=== PATIENT | male | born 1965 | race Caucasian/White ===

== ENCOUNTER 2016-12-11 17:28 | Inpatient (IN) | payer OTHER ==
[~2016-12-11] VITALS: Ht 170.2 cm; Wt 88.1 kg
[~2016-12-11 17:28] MED LIST: ALPRAZOLAM0.5 MG PO; ASPIR 8181 MG PO; CATAPRES 0.1MG0.1 MG PO; COMBIVENT0.074 GM/I INH; FLONASE 0.05% N16 GM; FOLIC ACID1 MG PO; GABAPENTIN800 MG PO; HABITROL 21 MG P1 EA TD; LORTAB 5-325 M1 EACH PO; MILK OF MAGNESI30 ML PO; MIRALAX PACK 171 PKT PO; MULTIVITAMINS1 EAC1 PO; NORCO 5-325 TA1 EACH PO; PANCREASE PO; PREDNISONE20 MG PO; PRILOSEC20 MG PO; SENOKOT-S TABL1 EACH PO; SEROQUEL200 MG PO; TOPROL XL 100100 MG PO; VENTOLIN/PROVE0.5 ML INH; ZANAFLEX4 M1 PO; ZOFRAN4 MG PO
[2016-12-11 19:34] LABS: HEMOGLOBIN 13.5 gm/dl (14.0-17.5); RED BLOOD COUNT 4.42 M/UL (4.20-5.50); WHITE BLOOD COUNT 13.3 K/UL (4.5-11.0)
--- NOTE | 2016-12-12 03:40 | NUR ---
ASKED KARLA NIGHT PHARMACIST TO PLEASE RELEASE CLONIDINE SO I CAN ADMINISTER IT ORDERED
--- NOTE | 2016-12-12 04:29 | NUR ---
JUST NOTIFIED PATIENT CAN GO TO ROOM 4782
[2016-12-12 06:00] LABS: HEMOGLOBIN 11.9 gm/dl (14.0-17.5)
[2016-12-12 06:03] LABS: WHITE BLOOD COUNT 9.4 K/UL (4.5-11.0)
[2016-12-12 06:21] LABS: BUN/CREATININE RATIO 10 (0-10)
[2016-12-13 03:43] LABS: HEMOGLOBIN 11.2 gm/dl (14.0-17.5); RED BLOOD COUNT 3.71 M/UL (4.20-5.50); WHITE BLOOD COUNT 7.7 K/UL (4.5-11.0)
[2017-05-19] MEDS ORDERED: CREON DR 3,0001 EACH PO (17:39)
[2017-05-19] MEDS ORDERED: FOLIC ACID 1 MG1 MG PO (17:40)
[2017-05-19] MEDS ORDERED: CLARITIN 10MG T10 MG PO (17:41)
[2017-05-19] MEDS ORDERED: TIZANIDINE HCL4 M1 PO (17:42)
[2017-05-19] MEDS ORDERED: OMEPRAZOLE20 MG PO (17:44)
[2017-05-21] MEDS ORDERED: PROTONIX40 MG PO (14:04)
[2017-05-21] MEDS ORDERED: MAGNESIUM400 MG PO (14:05)
[2017-05-21] MEDS ORDERED: DAILY MULTIPLE1 EAC1 PO (14:09)
== END 2016-12-13 15:51 | disposition left against medical advice (07) | DRG 683 ==
LOC: ER1 17:28 → ZEROF 23:55 → CCU 23:55 → MED SURG 4 12-12 03:16 → CCU 12-12 03:16 → M/S 12-13 06:00
PROVIDERS: Family Medicine; Physician Assistant; ADMIT Internal Medicine
DX: N17.9 Acute kidney failure, unspecified (principal); E87.2 Acidosis; K86.1 Other chronic pancreatitis; E87.1 Hypo-osmolality and hyponatremia; I16.9 Hypertensive crisis, unspecified; I95.1 Orthostatic hypotension; E86.0 Dehydration; J44.9 Chronic obstructive pulmonary disease, unspecified; I10 Essential (primary) hypertension; K59.09 Other constipation; K21.9 Gastro-esophageal reflux disease without esophagitis; E83.52 Hypercalcemia; G89.4 Chronic pain syndrome; D72.829 Elevated white blood cell count, unspecified; F10.20 Alcohol dependence, uncomplicated; F17.210 Nicotine dependence, cigarettes, uncomplicated; R74.8 Abnormal levels of other serum enzymes; S00.81XA Abrasion of other part of head, initial encounter; W19.XXXA Unspecified fall, initial encounter; Z79.82 Long term (current) use of aspirin; Z99.81 Dependence on supplemental oxygen; Z79.891 Long term (current) use of opiate analgesic; Z79.899 Other long term (current) drug therapy; Z98.890 Other specified postprocedural states; Z82.3 Family history of stroke; Z80.8 Family history of malignant neoplasm of other organs or systems
CPT/HCPCS: 36415; 70450; 71010; 72125; 72128; 72131; 80053; 80307; 81001; 82550; 82553; 83690; 83735; 83874; 84439; 84443; 84484; 85025; 85027; 87040; 87086; 93005; 94640; 94664; 95819; 99285; G0480; J3411; J3475; J7030

== ENCOUNTER 2016-12-15 22:24 | Emergency (ER) | payer OTHER ==
[2017-05-19] MEDS ORDERED: CREON DR 3,0001 EACH PO (17:39)
[2017-05-19] MEDS ORDERED: FOLIC ACID 1 MG1 MG PO (17:40)
[2017-05-19] MEDS ORDERED: CLARITIN 10MG T10 MG PO (17:41)
[2017-05-19] MEDS ORDERED: TIZANIDINE HCL4 M1 PO (17:42)
[2017-05-19] MEDS ORDERED: OMEPRAZOLE20 MG PO (17:44)
[2017-05-21] MEDS ORDERED: PROTONIX40 MG PO (14:04)
[2017-05-21] MEDS ORDERED: MAGNESIUM400 MG PO (14:05)
[2017-05-21] MEDS ORDERED: DAILY MULTIPLE1 EAC1 PO (14:09)
== END 2016-12-15 23:48 | disposition left against medical advice (07) ==
LOC: ER1 22:24
DX: Z53.21 Procedure and treatment not carried out due to patient leaving prior to being seen by health care provider (principal)
CPT/HCPCS: 93005

== ENCOUNTER 2016-12-25 00:40 | Observation (INO) | payer OTHER ==
[~2016-12-25] VITALS: Ht 165.1 cm; Wt 93.4 kg
[2016-12-25 05:12] LABS: HEMOGLOBIN 13.3 gm/dl (14.0-17.5); RED BLOOD COUNT 4.31 M/UL (4.20-5.50); WHITE BLOOD COUNT 9.6 K/UL (4.5-11.0)
[2016-12-25 06:10] LABS: BUN/CREATININE RATIO 8 (0-10)
[2016-12-25 08:28] LABS: BUN/CREATININE RATIO 8 (0-10)
[2016-12-25] MEDS ORDERED: CYMBALTA60 MG PO (09:26)
[2016-12-25] MEDS ORDERED: PHENERGAN 25 MG25 M1 PO (09:27)
[2016-12-25] MEDS ORDERED: BENADRYL 25MG C25 MG PO (09:29)
[2016-12-25] MEDS ORDERED: CLARITIN 10MG T10 MG PO (09:30)
[2016-12-25] MEDS ORDERED: MOBIC7.5 MG PO (09:31)
[2016-12-25] MEDS ORDERED: MULTIVITAMINS1 EAC1 PO (09:31)
[2016-12-25 16:40] LABS: BUN/CREATININE RATIO 8 (0-10)
[2016-12-26 05:46] LABS: RED BLOOD COUNT 3.65 M/UL (4.20-5.50); WHITE BLOOD COUNT 6.3 K/UL (4.5-11.0)
[2016-12-26 06:08] LABS: BUN/CREATININE RATIO 7 (0-10)
[2016-12-26 19:07] LABS: BUN/CREATININE RATIO 8 (0-10)
[2016-12-27 05:45] LABS: BUN/CREATININE RATIO 8 (0-10)
[2016-12-27] MEDS ORDERED: VITAMIN B-1100 M1 PO (12:36)
[2016-12-27] MEDS ORDERED: TYLENOL 325MG325 MG PO (12:37)
[2017-05-19] MEDS ORDERED: CREON DR 3,0001 EACH PO (17:39)
[2017-05-19] MEDS ORDERED: FOLIC ACID 1 MG1 MG PO (17:40)
[2017-05-19] MEDS ORDERED: CLARITIN 10MG T10 MG PO (17:41)
[2017-05-19] MEDS ORDERED: TIZANIDINE HCL4 M1 PO (17:42)
[2017-05-19] MEDS ORDERED: OMEPRAZOLE20 MG PO (17:44)
[2017-05-21] MEDS ORDERED: PROTONIX40 MG PO (14:04)
[2017-05-21] MEDS ORDERED: MAGNESIUM400 MG PO (14:05)
[2017-05-21] MEDS ORDERED: DAILY MULTIPLE1 EAC1 PO (14:09)
== END 2016-12-27 16:45 | disposition home or self-care (01) ==
LOC: ER1 00:40 → ZEROF 07:20 → PROG CARE 07:20 → M/S 07:20 → PROG CARE 17:21 → M/S 12-26 17:10
PROVIDERS: Emergency Medicine; Internal Medicine; ADMIT Internal Medicine
DX: K85.20 Alcohol induced acute pancreatitis without necrosis or infection (principal); K86.0 Alcohol-induced chronic pancreatitis; G89.29 Other chronic pain; R10.9 Unspecified abdominal pain; E87.5 Hyperkalemia; E87.2 Acidosis; I16.0 Hypertensive urgency; F10.129 Alcohol abuse with intoxication, unspecified; F17.210 Nicotine dependence, cigarettes, uncomplicated; F41.9 Anxiety disorder, unspecified; K21.9 Gastro-esophageal reflux disease without esophagitis; Z88.5 Allergy status to narcotic agent; Z79.82 Long term (current) use of aspirin; Z79.899 Other long term (current) drug therapy; Z91.19 Patient's noncompliance with other medical treatment and regimen; Z98.890 Other specified postprocedural states
CPT/HCPCS: 36415; 71010; 80048; 80053; 80307; 81001; 82150; 83690; 83735; 84100; 84484; 85025; 87086; 93005; 94640; 94664; 96361; 96374; 96375; 96376; 99285; G0378; G0480; J2270; J2405; J2550; J7030; J7050; Q0163

== ENCOUNTER 2017-01-02 13:54 | Emergency (ER) | payer OTHER ==
[~2017-01-02 13:54] MED LIST changes: +BENADRYL 25MG C25 MG PO; +CLARITIN 10MG T10 MG PO; +CYMBALTA60 MG PO; +MOBIC7.5 MG PO; +PHENERGAN 25 MG25 M1 PO; +TYLENOL 325MG325 MG PO; +VITAMIN B-1100 M1 PO
[2017-01-02 15:32] LABS: RED BLOOD COUNT 4.2 M/UL (4.20-5.50); WHITE BLOOD COUNT 7.2 K/UL (4.5-11.0)
[2017-01-02 15:55] LABS: BUN/CREATININE RATIO 10 (0-10)
[2017-01-02 21:20] LABS: BUN/CREATININE RATIO 8 (0-10)
[2017-05-19] MEDS ORDERED: CREON DR 3,0001 EACH PO (17:39)
[2017-05-19] MEDS ORDERED: FOLIC ACID 1 MG1 MG PO (17:40)
[2017-05-19] MEDS ORDERED: CLARITIN 10MG T10 MG PO (17:41)
[2017-05-19] MEDS ORDERED: TIZANIDINE HCL4 M1 PO (17:42)
[2017-05-19] MEDS ORDERED: OMEPRAZOLE20 MG PO (17:44)
[2017-05-21] MEDS ORDERED: PROTONIX40 MG PO (14:04)
[2017-05-21] MEDS ORDERED: MAGNESIUM400 MG PO (14:05)
[2017-05-21] MEDS ORDERED: DAILY MULTIPLE1 EAC1 PO (14:09)
== END 2017-01-02 22:05 | disposition home or self-care (01) ==
LOC: ER1 13:54
PROVIDERS: Emergency Medicine
DX: R55 Syncope and collapse (principal); R10.84 Generalized abdominal pain; R11.2 Nausea with vomiting, unspecified; R79.89 Other specified abnormal findings of blood chemistry; R42 Dizziness and giddiness; I10 Essential (primary) hypertension; J44.9 Chronic obstructive pulmonary disease, unspecified; F17.200 Nicotine dependence, unspecified, uncomplicated; Z90.49 Acquired absence of other specified parts of digestive tract; Z99.81 Dependence on supplemental oxygen
CPT/HCPCS: 36415; 70450; 71010; 80048; 80053; 81001; 82150; 82550; 82553; 83690; 83874; 84484; 85025; 93005; 96374; 96375; 96376; 99285; C9113; J2270; J2405; J7030

== ENCOUNTER 2017-01-15 17:52 | Inpatient (IN) | payer OTHER ==
[~2017-01-15] VITALS: Ht 167.6 cm; Wt 89.4 kg
[2017-01-15 21:23] LABS: HEMOGLOBIN 14.4 gm/dl (14.0-17.5); RED BLOOD COUNT 4.74 M/UL (4.20-5.50); WHITE BLOOD COUNT 7.9 K/UL (4.5-11.0)
[2017-01-15 21:43] LABS: BUN/CREATININE RATIO 9 (0-10)
[2017-01-16 09:05] LABS: BUN/CREATININE RATIO 9 (0-10)
--- NOTE | 2017-01-17 22:48 | NUR ---
01-17-17 DURING CHANGE OF SHIFT REPORT I WAS NOTIFIED THAT THE PATIENT HAD ACCIDENTALLY D/C'D HIS IV AND THE DAY SHIFT NURSE WAS UNABLE TO GET ONE. DURING MY ASSESSMENT AROUND 7PM I WENT TO TRY TO START THE PATIENT AN IV AND TRIED TWICE AND WAS UNSUCCESSFUL. TWO MORE NURSES ON THE FLOOR ATTEMPTED TO START AN IV AND WERE ALSO UNSUCCESSFUL. AT THIS POINT I CALLED ER TO SEE IF AN ER NURSE COULD COME UP AND START AN IV AND THEY SAID IT WOULD BE A LITTLE WHILE BEFORE THEY COULD COME UP. APPROX ONE HOUR WENT BY AND NOBODY HAD SHOWED UP YET SO I CALLED OUR EGG CASER AND ASKED IF SHE COULD FIND SOMEBODY FOR ME TO GET THE IV. SHE STATED THAT EVERYONE WAS BUSY WELL AND THAT IT WOULD BE A WHILE BEFORE SOMEBODY COULD GET TO ME, BUT THAT SHE WOULD TRY TO FIND SOMEONE. 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 [facility] NURSES INCLUDING MYSELF TRIED TO CALM THE PT DOWN AND EXPLAIN THE RISKS OF LEAVING, NOTHING HELPED. PT STATED MULTIPLE TIMES HE WAS LEAVING SOON HE FOUND HIMSELF A RIDE. AROUND 10 PM I WENT IN TO SEE IF THE PT WOULD AGREE TO TAKE HIS PRESCRIBED NIGHTLY MEDICATIONS. THE PT STATED HE WOULD NOT TAKE ANYTHING EVEN HIS BP MEDS AND "THAT HE HAS MEDICATIONS AT HOME TO TAKE". AROUND 30 MIN LATER THE PT CALLED OUT TO THE NURSES STATION REQUESTING NITROGLYCERIN WITH COMPLAINTS OF CHEST PAIN. THE PT DOES NOT HAVE AN ORDER FOR THAT DUE TO THE PT ADM DX BEING ACUTE ON CHRONIC PANCREATITIS. THE NURSES AID CHECKED HIS VITALS AND HIS BP WAS ELEVATED (185/141). THE MD WAS NOTIFIED AND EXPLAINED THE SITUATION REGARDING THE PT THUS FAR WELL THE PT REFUSES HIS NIGHTLY MEDS AND O2 THERAPY FOR CHEST PAIN. MD STATED TO "LET THE PT LEAVE" AND HE DID NOT GIVE ME ANY ORDERS. I EVEN CLARIFIED WITH THE MD BEFORE I HUNG UP THE PHONE ONCE MORE IF HE WANTS CE'S OR AN EKG AND HE STATED HE DID NOT. AFTER GETTING OFF THE PHONE WITH THE MD I CALLED OUR EGG CASER AGAIN TO SEE IF SHE COULD ATLEAST COME AND TRY TO TALK TO THE PATIENT AND POSSIBLY CALM HIM DOWN. SHE STATED SHE WAS BUSY AND THAT SHE WOULD TRY TO COME DOWN LATER. I EXPLAINED THE WHOLE SITATION INCLUDING THE PHONE CALL TO THE MD AND SHE STATED TO JUST MAKE SURE THAT I DOCUMENT EVERYTHING AND THERE IS NOTHING WE CAN DO AT THIS TIME. I WILL CONTINUE TO MONITOR THE PT. OCTAVIANO VÁSQUEZ RN
[2017-01-18 08:31] LABS: HEMOGLOBIN 10.3 gm/dl (14.0-17.5); RED BLOOD COUNT 3.45 M/UL (4.20-5.50); WHITE BLOOD COUNT 5.9 K/UL (4.5-11.0)
[2017-01-18 08:36] LABS: BUN/CREATININE RATIO 10 (0-10)
[2017-05-19] MEDS ORDERED: CREON DR 3,0001 EACH PO (17:39)
[2017-05-19] MEDS ORDERED: FOLIC ACID 1 MG1 MG PO (17:40)
[2017-05-19] MEDS ORDERED: CLARITIN 10MG T10 MG PO (17:41)
[2017-05-19] MEDS ORDERED: TIZANIDINE HCL4 M1 PO (17:42)
[2017-05-19] MEDS ORDERED: OMEPRAZOLE20 MG PO (17:44)
[2017-05-21] MEDS ORDERED: PROTONIX40 MG PO (14:04)
[2017-05-21] MEDS ORDERED: MAGNESIUM400 MG PO (14:05)
[2017-05-21] MEDS ORDERED: DAILY MULTIPLE1 EAC1 PO (14:09)
== END 2017-01-18 15:14 | disposition home or self-care (01) | DRG 439 ==
LOC: ER1 17:52 → ZEROF 01-16 00:53 → MED SURG 4 01-16 14:58
PROVIDERS: Emergency Medicine; Internal Medicine; ADMIT Internal Medicine
DX: K85.90 Acute pancreatitis without necrosis or infection, unspecified (principal); F11.20 Opioid dependence, uncomplicated; K86.1 Other chronic pancreatitis; F17.210 Nicotine dependence, cigarettes, uncomplicated; F10.20 Alcohol dependence, uncomplicated; T18.3XXA Foreign body in small intestine, initial encounter; X58.XXXA Exposure to other specified factors, initial encounter; Y93.9 Activity, unspecified; Y92.89 Other specified places as the place of occurrence of the external cause; Z79.82 Long term (current) use of aspirin; Z79.899 Other long term (current) drug therapy; Z91.14 Patient's other noncompliance with medication regimen
CPT/HCPCS: 36415; 71010; 80053; 80061; 81001; 82150; 83605; 83690; 83735; 84100; 84484; 85025; 85027; 85379; 93005; 94640; 94664; 96374; 96375; 96376; 99285; G0378; J2270; J2405; J3411; J7030

== ENCOUNTER 2017-02-15 18:51 | Observation (INO) | payer OTHER ==
[~2017-02-15] VITALS: Ht 167.6 cm; Wt 87.5 kg
[2017-02-15 19:12] LABS: HEMOGLOBIN 12.9 gm/dl (14.0-17.5); RED BLOOD COUNT 4.3 M/UL (4.20-5.50); WHITE BLOOD COUNT 6.9 K/UL (4.5-11.0)
[2017-02-15 19:23] LABS: BUN/CREATININE RATIO 9 (0-10)
[2017-02-16] MEDS ORDERED: NORVASC 5 MG TAB5 MG PO (03:46)
[2017-02-16] MEDS ORDERED: MELOXICAM7.5 MG PO (03:47)
[2017-02-16] MEDS ORDERED: NITROSTAT 0.40.4 MG SL (03:48)
[2017-02-16] MEDS ORDERED: PHENERGAN 25 MG25 M1 PO (03:49)
[2017-02-16] MEDS ORDERED: VENTOLIN HFA 66.7 GM INH (03:51)
[2017-02-16] MEDS ORDERED: CREON DR 3,0001 EACH PO (03:52)
[2017-02-16 08:04] LABS: HEMOGLOBIN 12.5 gm/dl (14.0-17.5); RED BLOOD COUNT 4.14 M/UL (4.20-5.50); WHITE BLOOD COUNT 6.5 K/UL (4.5-11.0)
[2017-02-16 08:15] LABS: BUN/CREATININE RATIO 9 (0-10)
[2017-02-16] MEDS ORDERED: LISINOPRIL10 MG PO (15:57)
[2017-02-16] MEDS ORDERED: SENOKOT-S TABL1 EACH PO (15:58)
[2017-02-16] MEDS ORDERED: MULTIPLE VITAM1 EACH PO (16:03)
[2017-02-16] MEDS ORDERED: NORVASC10 MG PO (16:19)
[2017-05-19] MEDS ORDERED: CREON DR 3,0001 EACH PO (17:39)
[2017-05-19] MEDS ORDERED: FOLIC ACID 1 MG1 MG PO (17:40)
[2017-05-19] MEDS ORDERED: CLARITIN 10MG T10 MG PO (17:41)
[2017-05-19] MEDS ORDERED: TIZANIDINE HCL4 M1 PO (17:42)
[2017-05-19] MEDS ORDERED: OMEPRAZOLE20 MG PO (17:44)
[2017-05-21] MEDS ORDERED: PROTONIX40 MG PO (14:04)
[2017-05-21] MEDS ORDERED: MAGNESIUM400 MG PO (14:05)
[2017-05-21] MEDS ORDERED: DAILY MULTIPLE1 EAC1 PO (14:09)
== END 2017-02-16 16:48 | disposition home or self-care (01) ==
LOC: ER1 18:51 → M/S 20:45 → ZEROF 20:45 → M/S 20:45
PROVIDERS: Family Medicine; ADMIT Internal Medicine
DX: R10.9 Unspecified abdominal pain (principal); I10 Essential (primary) hypertension; F17.210 Nicotine dependence, cigarettes, uncomplicated; E87.1 Hypo-osmolality and hyponatremia; R74.0 Nonspecific elevation of levels of transaminase and lactic acid dehydrogenase [LDH]; J44.9 Chronic obstructive pulmonary disease, unspecified; K21.9 Gastro-esophageal reflux disease without esophagitis; F41.9 Anxiety disorder, unspecified; F10.20 Alcohol dependence, uncomplicated; E86.0 Dehydration; E87.2 Acidosis; J96.11 Chronic respiratory failure with hypoxia; Z91.19 Patient's noncompliance with other medical treatment and regimen; Z76.5 Malingerer [conscious simulation]; Z79.891 Long term (current) use of opiate analgesic; Z79.82 Long term (current) use of aspirin; Z79.899 Other long term (current) drug therapy; Z99.81 Dependence on supplemental oxygen; Z90.49 Acquired absence of other specified parts of digestive tract
CPT/HCPCS: 36415; 36600; 71010; 80048; 80053; 80307; 81001; 82150; 82550; 82553; 82803; 83605; 83690; 83735; 83874; 84484; 85025; 85379; 93005; 96361; 96374; 96375; 96376; 99285; G0378; J2270; J2405; J7030

== ENCOUNTER 2017-02-20 22:46 | Emergency (ER) | payer OTHER ==
[~2017-02-20 22:46] MED LIST changes: +CREON DR 3,0001 EACH PO; +LISINOPRIL10 MG PO; +MELOXICAM7.5 MG PO; +MULTIPLE VITAM1 EACH PO; +NITROSTAT 0.40.4 MG SL; +NORVASC 5 MG TAB5 MG PO; +NORVASC10 MG PO; +VENTOLIN HFA 66.7 GM INH
[2017-02-20 23:38] LABS: HEMOGLOBIN 11.9 gm/dl (14.0-17.5); RED BLOOD COUNT 3.95 M/UL (4.20-5.50); WHITE BLOOD COUNT 7.5 K/UL (4.5-11.0)
[2017-02-21 00:10] LABS: BUN/CREATININE RATIO 9 (0-10)
[2017-05-19] MEDS ORDERED: CREON DR 3,0001 EACH PO (17:39)
[2017-05-19] MEDS ORDERED: FOLIC ACID 1 MG1 MG PO (17:40)
[2017-05-19] MEDS ORDERED: CLARITIN 10MG T10 MG PO (17:41)
[2017-05-19] MEDS ORDERED: TIZANIDINE HCL4 M1 PO (17:42)
[2017-05-19] MEDS ORDERED: OMEPRAZOLE20 MG PO (17:44)
[2017-05-21] MEDS ORDERED: PROTONIX40 MG PO (14:04)
[2017-05-21] MEDS ORDERED: MAGNESIUM400 MG PO (14:05)
[2017-05-21] MEDS ORDERED: DAILY MULTIPLE1 EAC1 PO (14:09)
== END 2017-02-21 05:00 | disposition home or self-care (01) ==
LOC: ER1 22:46
PROVIDERS: Emergency Medicine
DX: R10.9 Unspecified abdominal pain (principal)
CPT/HCPCS: 36415; 71010; 74000; 80053; 82550; 82553; 83605; 83690; 83874; 84484; 85025; 85610; 85730; 86850; 86900; 86901; 87040; 93005; 96361; 96365; 99284

== ENCOUNTER 2017-03-05 21:45 | Emergency (ER) | payer OTHER ==
[2017-03-05 22:49] LABS: HEMOGLOBIN 12.9 gm/dl (14.0-17.5); RED BLOOD COUNT 4.27 M/UL (4.20-5.50); WHITE BLOOD COUNT 10.5 K/UL (4.5-11.0)
[2017-03-05 23:09] LABS: BUN/CREATININE RATIO 10 (0-10)
[2017-05-19] MEDS ORDERED: CREON DR 3,0001 EACH PO (17:39)
[2017-05-19] MEDS ORDERED: FOLIC ACID 1 MG1 MG PO (17:40)
[2017-05-19] MEDS ORDERED: CLARITIN 10MG T10 MG PO (17:41)
[2017-05-19] MEDS ORDERED: TIZANIDINE HCL4 M1 PO (17:42)
[2017-05-19] MEDS ORDERED: OMEPRAZOLE20 MG PO (17:44)
[2017-05-21] MEDS ORDERED: PROTONIX40 MG PO (14:04)
[2017-05-21] MEDS ORDERED: MAGNESIUM400 MG PO (14:05)
[2017-05-21] MEDS ORDERED: DAILY MULTIPLE1 EAC1 PO (14:09)
== END 2017-03-05 23:30 | disposition home or self-care (01) ==
LOC: ER1 21:45
PROVIDERS: Emergency Medicine
DX: R10.9 Unspecified abdominal pain (principal); K85.90 Acute pancreatitis without necrosis or infection, unspecified; N28.9 Disorder of kidney and ureter, unspecified; I10 Essential (primary) hypertension; J44.9 Chronic obstructive pulmonary disease, unspecified
CPT/HCPCS: 80053; 83605; 83690; 85025; 96374; 96375; 99284; J2270; J2405; J7030

== ENCOUNTER 2017-06-23 15:53 | Emergency (ER) | payer OTHER ==
[~2017-06-23 15:53] MED LIST changes: +DAILY MULTIPLE1 EAC1 PO; +FOLIC ACID 1 MG1 MG PO; +MAGNESIUM400 MG PO; +OMEPRAZOLE20 MG PO; +PROTONIX40 MG PO; +TIZANIDINE HCL4 M1 PO
[2017-06-23 17:17] LABS: HEMOGLOBIN 11.8 gm/dl (14.0-17.5); RED BLOOD COUNT 4.16 M/UL (4.20-5.50); WHITE BLOOD COUNT 7.2 K/UL (4.5-11.0)
[2017-06-23 17:49] LABS: BUN/CREATININE RATIO 11 (0-10)
== END 2017-06-23 18:55 | disposition home or self-care (01) ==
LOC: ER1 15:53
PROVIDERS: Emergency Medicine
DX: R22.43 Localized swelling, mass and lump, lower limb, bilateral (principal); I10 Essential (primary) hypertension; J44.9 Chronic obstructive pulmonary disease, unspecified; F17.200 Nicotine dependence, unspecified, uncomplicated; Z87.19 Personal history of other diseases of the digestive system; Z88.5 Allergy status to narcotic agent
CPT/HCPCS: 36415; 71010; 80053; 83880; 85025; 93970; 99284

== ENCOUNTER 2021-02-01 14:40 | Emergency (ER) | payer OTHER ==
[~2021-02-01 14:40] MED LIST changes: +ASPIRIN CHEWABL81 MG PO; +AUGMENTIN 875-1 EACH PO; +BACTRIM DS TAB1 EACH PO; +BANOPHEN25 MG PO; +BENTYL 10MG CAP10 MG PO; +BREO ELLIPTA 21 EACH INH; +CATAPRES0.3 MG PO; +CLONIDINE HCL0.3 MG PO; +COLACE 100MG C100 MG PO; +COLACE100 MG PO; +CORTIZONE 1028 GM TP; +COUMADIN6 MG PO; +CYCLOBENZAPRINE5 MG PO; +DOXYCYCLINE HY100 MG PO; +DULERA 100 MCG8.8 GM INH; +ELIQUIS2.5 MG PO; +FEOSOL325 MG PO; +FERROUS GLUCON324 M1 PO; +FLEXERIL 10 MG10 MG PO; +HYDRALAZINE HCL25 MG PO; +HYDROCODON-ACE1 EAC2 PO; +IBUPROFEN800 MG PO; +IMDUR ER TAB 3030 MG PO; +IMITREX100 MG PO; +ISORDIL TAB 1010 MG PO; +ISORDIL TAB 3030 MG PO; +LIPITOR TAB 2020 MG PO; +LOPRESSOR50 MG PO; +MEDROL DOSEPAK 24 MG PO; +NAPROSYN500 MG PO; +NEURONTIN800 MG PO; +NITROSTAT0.4 MG SL; +NORCO 7.5-3251 EACH PO; +NORVASC2.5 MG PO; +OXYCODONE HCL5 MG PO; +PERCOCET 5-3251 EACH PO; +PERCOCET 5/325 T1 EA PO; +PHENERGAN 12.12.5 M1 PO; +PRILOSEC OTC20 MG PO; +PROVENTIL HFA6.7 GM INH; +REFRESH TEARS15 ML EYEBOTH; +SPIRIVA18 MCG INH; +STOOL SOFTENER250 MG PO; +TOPROL XL25 MG PO; +TYLENOL W/CODEIN1 EA PO; +ULTRACET TABLE1 EACH PO; +ULTRAM50 MG PO; +VITAMIN D35000 UNI1 PO; +ZANAFLEX4 MG PO; +ZOFRAN 4 MG TAB4 MG PO; +ZOFRAN ODT 4 MG4 MG PO
== END 2021-02-01 19:18 | disposition short-term general hospital (02) ==
LOC: ER1 14:40
DX: M25.552 Pain in left hip (principal); J44.9 Chronic obstructive pulmonary disease, unspecified; I10 Essential (primary) hypertension; Z88.5 Allergy status to narcotic agent; F17.210 Nicotine dependence, cigarettes, uncomplicated; W01.0XXA Fall on same level from slipping, tripping and stumbling without subsequent striking against object, initial encounter; Y92.009 Unspecified place in unspecified non-institutional (private) residence as the place of occurrence of the external cause
CPT/HCPCS: 73502; 99284

== ENCOUNTER 2021-11-20 17:53 | Observation (INO) | payer OTHER ==
[~2021-11-20] VITALS: Ht 167.6 cm; Wt 68.9 kg
[2021-11-20 18:39] LABS: HEMOGLOBIN 12.7 gm/dl (14.0-17.5); RED BLOOD COUNT 4.48 M/UL (4.20-5.50); WHITE BLOOD COUNT 17.8 K/UL (4.5-11.0)
[2021-11-20 21:03] LABS: BUN/CREATININE RATIO 28 (0-10)
[2021-11-21 05:43] LABS: HEMOGLOBIN 10.5 gm/dl (14.0-17.5); RED BLOOD COUNT 3.7 M/UL (4.20-5.50); WHITE BLOOD COUNT 11.7 K/UL (4.5-11.0)
[2021-11-21 06:23] LABS: BUN/CREATININE RATIO 28 (0-10)
[2021-11-21] MEDS ORDERED: ISOSORBIDE DINI30 MG PO (10:38)
[2021-11-21] MEDS ORDERED: NEURONTIN300 MG PO (10:41)
[2021-11-21] MEDS ORDERED: VITAMIN D21250 MCG PO (10:41)
[2021-11-21] MEDS ORDERED: B-121000 MCG PO (10:42)
[2021-11-23 04:14] LABS: HEMOGLOBIN 10.5 gm/dl (14.0-17.5); RED BLOOD COUNT 3.66 M/UL (4.20-5.50); WHITE BLOOD COUNT 7.8 K/UL (4.5-11.0)
[2021-11-23 04:27] LABS: BUN/CREATININE RATIO 20 (0-10)
[2021-11-23] MEDS ORDERED: XARELTO20 MG PO (15:06)
--- NOTE | 2021-11-23 19:29 | NUR ---
SPOKE WITH DR ORTIZ. DISCHARGE WILL BE HELD TIL AM R/T FAMILY UNABLE TO WRECKER OPERATOR TIL AM.
[2021-11-24 04:57] LABS: HEMOGLOBIN 10.1 gm/dl (14.0-17.5); RED BLOOD COUNT 3.56 M/UL (4.20-5.50); WHITE BLOOD COUNT 8.7 K/UL (4.5-11.0)
[2021-11-24 05:19] LABS: BUN/CREATININE RATIO 21 (0-10)
== END 2021-11-24 12:20 | disposition home or self-care (01) ==
LOC: ER1 17:53 → CDU 11-21 00:21 → CCU 11-22 16:52
PROVIDERS: Emergency Medicine; Internal Medicine; Physician Assistant; Physician Assistant Medical; ADMIT Internal Medicine
DX: I26.99 Other pulmonary embolism without acute cor pulmonale (principal); Z20.822 Contact with and (suspected) exposure to COVID-19; R53.81 Other malaise; K86.1 Other chronic pancreatitis; B18.2 Chronic viral hepatitis C; F10.10 Alcohol abuse, uncomplicated; J43.9 Emphysema, unspecified; I11.0 Hypertensive heart disease with heart failure; I50.22 Chronic systolic (congestive) heart failure; I73.9 Peripheral vascular disease, unspecified; K21.9 Gastro-esophageal reflux disease without esophagitis; D64.9 Anemia, unspecified; F17.210 Nicotine dependence, cigarettes, uncomplicated; I25.2 Old myocardial infarction; Z79.82 Long term (current) use of aspirin; Z79.899 Other long term (current) drug therapy; Z76.5 Malingerer [conscious simulation]; Z86.73 Personal history of transient ischemic attack (TIA), and cerebral infarction without residual deficits; Z88.8 Allergy status to other drugs, medicaments and biological substances
CPT/HCPCS: 0240U; 36415; 70450; 71045; 80048; 80053; 80307; 81001; 82550; 82553; 82962; 83605; 83690; 83735; 83874; 83880; 84484; 85025; 85027; 87040; 94640; 94664; 94760; 96374; 96375; 97110; 97161; 97166; 97530; 99285; G0378; J2270; J2405; Q9967

== ENCOUNTER 2022-01-18 21:47 | Emergency (ER) | payer OTHER ==
[~2022-01-18 21:47] MED LIST changes: +B-121000 MCG PO; +ISOSORBIDE DINI30 MG PO; +NEURONTIN300 MG PO; +VITAMIN D21250 MCG PO; +XARELTO20 MG PO
[2022-01-18 23:08] LABS: HEMOGLOBIN 14.3 gm/dl (14.0-17.5); WHITE BLOOD COUNT 10.6 K/UL (4.5-11.0)
[2022-01-18 23:17] LABS: BUN/CREATININE RATIO 21 (0-10)
[2022-01-19] MEDS ORDERED: HYDROCODON-ACE1 EAC4 PO ×2 (02:32→02:45)
[2022-01-19] MEDS ORDERED: HYDROCODON-ACE1 EAC6 PO (02:50)
== END 2022-01-19 03:15 | disposition home or self-care (01) ==
LOC: ER1 21:47
PROVIDERS: Student in an Organized Health Care Education/Training Program
DX: R07.89 Other chest pain (principal); G62.9 Polyneuropathy, unspecified; I10 Essential (primary) hypertension; J44.9 Chronic obstructive pulmonary disease, unspecified; F17.200 Nicotine dependence, unspecified, uncomplicated; Z88.8 Allergy status to other drugs, medicaments and biological substances
CPT/HCPCS: 71045; 80053; 82550; 82553; 83690; 84484; 85025; 85379; 93005; 96374; 99285; J1170; Q9967